=== PATIENT | female | born 1960 | race African-American/Black ===

== ENCOUNTER 2024-11-26 10:18 | Outpatient (CLI) | payer OTHER, MEDICAID ==
[2024-11-26 11:28] LABS: #Basophils 0.04 10x3/uL (0.0-0.2); #Eosinophils 0.18 10x3/uL (0.0-0.7); #Monocytes 0.81 10x3/uL (0.11-0.59); #Neutrophils 5.41 10x3/uL (1.40-6.50); %Basophils 0.4 % (0.0-1.0); %Eosinophils 1.9 % (0.0-10.0); %Lymphocytes 31.6 % (21.0-51.0); %Monocytes 8.6 % (0.0-10.0); %Neutrophils 57.3 % (42.0-75.0); Hematocrit 46.6 % (36.0-47.0); Hemoglobin 15.2 g/dL (12.0-16.0); Mean Corpuscular Hemoglobin 31.1 pg (27.0-31.0); Mean Corpuscular Volume 95.3 fL (78.0-98.0); Platelet Count 313 10x3/uL (130-400); Red Blood Cell (RBC) Count 4.89 mill/uL (4.20-5.40); White Blood Cell (WBC) Count 9.44 10x3/uL (4.8-10.8)
[2024-11-26 11:37] LABS: INR-International Normal Ratio 1.0; Prothrombin Time 13.5 sec (12.0-14.7)
[2024-11-26 11:58] LABS: Anion Gap 14 mmol/L (10-20); BUN (Urea Nitrogen) 7 mg/dL (9.8-20.1); Calc. Creatinine Clearance 0 mL/min (70-130); Calcium 9.4 mg/dL (7.8-10.44); Carbon Dioxide 25 mmol/L (23-31); Chloride 103 mmol/L (98-107); Glucose 157 mg/dL (80-115); Potassium 3.6 mmol/L (3.5-5.1); Sodium 138 mmol/L (136-145)
== END 2024-11-26 10:19 | disposition home or self-care (01) ==
LOC: LABBT 10:18
PROVIDERS: ATTEND Orthopaedic Surgery
DX: Z01.818 Encounter for other preprocedural examination (principal); M16.12 Unilateral primary osteoarthritis, left hip
CPT/HCPCS: 80048; 83036; 85025; 85610; 87081; 93005; 93010

== ENCOUNTER 2024-12-03 08:06 | Observation (INO) | payer BC, OTHER ==
[2024-12-03] MEDS ORDERED: Tranexamic Acid 1,000 MG/10 ML VIAL ONE (09:45)
[2024-12-03] MEDS ORDERED: Vancomycin HCl 1.5 GM VIAL ONE (09:45)
[2024-12-03] MEDS ORDERED: Lidocaine 1.5% w/Epi 1:200K 30 ML VIAL (Epid Use) ONE (10:00)
[2024-12-03] MEDS ORDERED: HYDROcodone/Acetaminophen 5/325 mg Tablet PO PRN (10:15)
[2024-12-03] MEDS ORDERED: diphenhydrAMINE 50 MG/ML VIAL IM PRN (10:15)
[2024-12-03] MEDS ORDERED: diphenhydrAMINE 25 MG CAP PO PRN ×2 (10:15→13:49)
[2024-12-03] MEDS ORDERED: diphenhydrAMINE 50 MG/ML VIAL IVP PRN (10:15)
[2024-12-03] MEDS ORDERED: Ondansetron PF 4 MG/2 ML Vial IVP PRN ×2 (10:15→13:49)
[2024-12-03] MEDS ORDERED: fentaNYL PF 100 MCG/2 ML SYRINGE ONE ×2 (11:16→13:30)
[2024-12-03] MEDS ORDERED: PROPOFOL 20 ML ONE (11:16)
[2024-12-03] MEDS ORDERED: Lidocaine 1% PF 5 ML VIAL ONE (11:17)
[2024-12-03] MEDS ORDERED: Ondansetron PF 4 MG/2 ML Vial ONE (11:17)
[2024-12-03] MEDS ORDERED: Rocuronium Bromide 10 MG/ML (10ML VIAL) ONE (11:17)
[2024-12-03] MEDS ORDERED: CEFAZOLIN 2 GM VIAL ONE (11:31)
[2024-12-03] MEDS ORDERED: Acetaminophen 500 MG TAB PO SCH (12:00)
[2024-12-03] MEDS ORDERED: Bupivacaine 0.25% HCL 30 ML VIAL ONE (12:36)
[2024-12-03] MEDS ORDERED: SUGAMMADEX SODIUM 200 MG/2 ML VIAL ONE ×2 (13:05→13:06)
[2024-12-03] MEDS ORDERED: Baclofen 10 MG TAB PO PRN (13:49)
[2024-12-03] MEDS ORDERED: HumaLOG 300 UNITS/3 ML VIAL SC PRN (13:49)
[2024-12-03] MEDS ORDERED: Acetaminophen 325 MG TAB PO PRN (13:49)
[2024-12-03] MEDS ORDERED: Ketorolac Tromethamine 30 MG (1 mL) VIAL ONE (13:51)
[2024-12-03] MEDS: Ketorolac Tromethamine 30 MG (1 mL) VIAL IVP SCH (13:52)
[2024-12-03] MEDS ORDERED: Albuterol 200 PUFF (6.7GM INHALER) INH PRN (14:47)
[2024-12-03 16:24] VITALS: BMI 32.5
[2024-12-03] MEDS ORDERED: Glucagon 1 MG/ML KIT IM PRN (17:31)
[2024-12-03] MEDS ORDERED: Dextrose 50% Abboject 50 ML SYRINGE SLOW IVP PRN (17:31)
[2024-12-03] MEDS: Pregabalin 25 MG CAP PO SCH (21:47)
[2024-12-03] MEDS: Rosuvastatin 20 MG TAB PO SCH (21:47)
[2024-12-03] MEDS: Carvedilol 25 MG TAB PO SCH (21:47)
[2024-12-03] MEDS: Aspirin 81 mg Enteric Coated Tablet PO SCH (21:48)
[2024-12-03] MEDS: Brimonidine Tartrate 0.2% Ophth Soln 5 ml Bottle EA EYE SCH (21:51)
[2024-12-04] MEDS: FENTANYL 500 MCG/10 ML VIAL 500 MCG, Bupivacaine 0.75% 10 ML in Sodium Chloride 0.9% 80 ML EPIDURAL SCH (03:08)
[2024-12-04 05:55] LABS: Hematocrit 34.5 % (36.0-47.0); Hemoglobin 11.7 g/dL (12.0-16.0); Mean Corpuscular Hemoglobin 31.8 pg (27.0-31.0); Mean Corpuscular Volume 93.8 fL (78.0-98.0); Platelet Count 229 10x3/uL (130-400); Red Blood Cell (RBC) Count 3.68 mill/uL (4.20-5.40); White Blood Cell (WBC) Count 16.60 10x3/uL (4.8-10.8)
[2024-12-04] MEDS: HYDROcodone/Acetaminophen 5/325 mg Tablet PO PRN (08:15)
[2024-12-04] MEDS: Senokot S 8.6-50 MG TAB PO SCH (08:15)
[2024-12-04] MEDS: Ferrous Gluconate 324 MG TAB PO SCH (08:15)
[2024-12-04] MEDS: Famotidine 20 MG TAB PO SCH (08:17)
[2024-12-04] MEDS: Multivitamin W/ Minerals 1 TAB PO SCH (08:17)
[2024-12-04] MEDS: NIFEdipine XL 30 MG ER.TAB PO SCH (08:17)
[2024-12-04 11:29] VITALS: BP 118/70; TEMP 98.1
[2024-12-04] MEDS ORDERED: HYDROcodone/Acetaminophen 5/325 mg Tablet PO PRN (11:38)
[2024-12-04] MEDS ORDERED: HYDROcodone/Acetaminophen 10/325 mg Tablet PO PRN (11:39)
[2024-12-04] MEDS: HYDROcodone/Acetaminophen 10/325 mg Tablet PO PRN (14:06)
== END 2024-12-04 14:55 | disposition home or self-care (01) ==
LOC: SUATTDRO 08:06 → SDC 08:06 → SURG A 15:41 → SDC 18:28 → SURG A 18:29
PROVIDERS: ADMIT Orthopaedic Surgery; ATTEND Hospitalist
PROC: 0SRB0JZ Replacement of Left Hip Joint with Synthetic Substitute, Open Approach (ICD-10-PCS; principal; 2024-12-03)
DX: M16.52 Unilateral post-traumatic osteoarthritis, left hip (principal); I10 Essential (primary) hypertension; E11.9 Type 2 diabetes mellitus without complications; H54.7 Unspecified visual loss; G47.33 Obstructive sleep apnea (adult) (pediatric); F17.200 Nicotine dependence, unspecified, uncomplicated; Z98.51 Tubal ligation status; Z96.659 Presence of unspecified artificial knee joint; Z90.710 Acquired absence of both cervix and uterus; Z88.2 Allergy status to sulfonamides; Z88.8 Allergy status to other drugs, medicaments and biological substances
CPT/HCPCS: 36415; 36416; 72170; 85027; 94640; C1713; C1776; J0665; J1100; J1815; J1885; J2405; J2704; J3010; J3490; J7030; J7050; J7626